=== PATIENT | male | born 1985 | race Caucasian/White ===

== ENCOUNTER 2021-09-30 19:40 | Outpatient (CLI) | payer BC, SELFPAY ==
[2021-10-01 00:09] LABS: Chlamydia DNA Amplified* NOT DETECTED (No Detected); GC DNA Amplified* NOT DETECTED (No Detected)
== END 2021-09-30 19:41 | disposition home or self-care (01) ==
LOC: LKVREF 19:40
PROVIDERS: Visit Provider Student in an Organized Health Care Education/Training Program
DX: R30.0 Dysuria (principal); N39.0 Urinary tract infection, site not specified
CPT/HCPCS: 87086; 87491; 87591